=== PATIENT | male | born 1955 | race Caucasian/White ===

== ENCOUNTER 2021-01-29 11:46 | Outpatient (CLI) | payer OTHER, BC ==
[2021-01-29] MEDS ORDERED: GABA-826 PO (12:27)
[2021-01-29] MEDS ORDERED: PARO37.52 PO (12:27)
== END 2021-01-29 23:59 | disposition home or self-care (01) ==
LOC: STAR 11:46
PROVIDERS: ATTEND Orthopaedic Surgery
DX: Z01.812 Encounter for preprocedural laboratory examination (principal); Z20.822 Contact with and (suspected) exposure to COVID-19
CPT/HCPCS: 93005; U0003

== ENCOUNTER 2021-02-03 12:00 | Day surgery (SDC) | payer OTHER, BC ==
[~2021-02-03] VITALS: Ht 177.8 cm; Wt 103.4 kg
[~2021-02-03 12:00] MED LIST: GABA-826 PO; PARO37.52 PO
[2021-02-03] MEDS ORDERED: CHLORHEXIDINE 15 ML UDC ONE (12:51)
[2021-02-03] MEDS ORDERED: LACTATED RINGERS 1,000 ML IV SCH (13:00)
[2021-02-03] MEDS ORDERED: CHLORHEXIDINE 15 ML UDC PO ONE (13:00)
[2021-02-03] MEDS ORDERED: BUPIVACAINE/PF 0.5% ONE (13:05)
[2021-02-03] MEDS ORDERED: EPINEPHRINE 1 MG/ML, 1ML ONE (13:05)
[2021-02-03] MEDS ORDERED: FENTANYL PF 100 MCG/2ML ONE (13:26)
[2021-02-03] MEDS ORDERED: MIDAZOLAM 1 MG/ML, 2ML ONE (13:26)
[2021-02-03] MEDS ORDERED: KETOROLAC 30 MG/1 ML ONE (13:46)
[2021-02-03] MEDS ORDERED: CEFAZOLIN 1,000 MG ONE (13:46)
[2021-02-03] MEDS ORDERED: ONDANSETRON 2MG/ML, 2ML ONE (13:46)
[2021-02-03] MEDS ORDERED: DEXAMETHASONE 4 MG/ML, 1ML ONE (13:46)
[2021-02-03] MEDS ORDERED: LIDOCAINE-MPF 2% ,5ML ONE (13:46)
[2021-02-03] MEDS ORDERED: PROPOFOL 10 MG/ML, 20ML ONE (13:46)
[2021-02-03] MEDS ORDERED: FENTANYL PF 100 MCG/2ML IV PRN (14:00)
[2021-02-03] MEDS ORDERED: HYDROmorphone 1 MG/ML, 1ML INJ IVPush PRN (14:00)
[2021-02-03] MEDS ORDERED: ACETAMINOPHEN 325 MG TABLET PO PRN (14:00)
[2021-02-03] MEDS ORDERED: OXYcodone 5 MG/5 ML ORAL.SOL UDC PO PRN (14:00)
[2021-02-03] MEDS ORDERED: MEPERIDINE/PF 25MG/0.5ML IVPush PRN (14:00)
[2021-02-03] MEDS ORDERED: hydrALAzine 20 MG/ML, 1ML IV PRN (14:00)
[2021-02-03] MEDS ORDERED: PROMETHAZINE 25 MG/ML, 1ML IVPush PRN (14:00)
[2021-02-03] MEDS ORDERED: LABETALOL 5MG/ML, 20ML IV PRN (14:00)
[2021-02-03] MEDS ORDERED: MIDAZOLAM 1 MG/ML, 2ML IV PRN (14:00)
[2021-02-03] MEDS ORDERED: ALBUTEROL SULFATE 2.5 MG/3 ML NPPB PRN (14:00)
== END 2021-02-03 15:20 | disposition home or self-care (01) ==
LOC: OR 12:00
PROVIDERS: ATTEND Orthopaedic Surgery
DX: G56.03 Carpal tunnel syndrome, bilateral upper limbs (principal); G56.22 Lesion of ulnar nerve, left upper limb; Z79.899 Other long term (current) drug therapy; Z98.890 Other specified postprocedural states; Z82.61 Family history of arthritis; Z82.49 Family history of ischemic heart disease and other diseases of the circulatory system
CPT/HCPCS: 64719; 64721; J0171; J0690; J1100; J1885; J2250; J2405; J2704; J3010; J7120